=== PATIENT | male | born 1960 | race African-American/Black ===

== ENCOUNTER 2018-10-02 09:51 | Day surgery (SDC) | payer OTHER ==
[~2018-10-02] VITALS: Ht 180.3 cm; Wt 77.3 kg
[~2018-10-02 09:51] MED LIST: ASPI-1484 PO; HYDR-4173 PO; HYDROCHLORTHIAZIDE PO; LOSA100T58 PO; METF-444 PO; PRAV20TA4 PO; SODIUM CHLORIDE 0.9% 1,000 ML IV ONE; [UNRECOGNIZED DRUG - OTHER] PO
[2018-10-02] MEDS ORDERED: MIDAZOLAM HCL 2 MG/2 ML VIAL IVP ONE (09:52)
[2018-10-02] MEDS ORDERED: LIDOCAINE/PF 2% 5 ML VIAL IM ONE (09:52)
[2018-10-02] MEDS ORDERED: FentaNYL CITRATE-PF 100 MCG/2 ML VIAL IVP ONE (09:52)
[2018-10-02] MEDS ORDERED: PROPOFOL 1% 20 ML VIAL IVP ONE (09:52)
[2018-10-02] MEDS ORDERED: SODIUM CHLORIDE 0.9% 1,000 ML IV ONE (10:00)
[2018-10-02 10:18] LABS: BASOPHILS % (AUTO) 1.8 % (0.0-2.0); EOSINOPHILS % (AUTO) 1.5 % (1.0-6.0); HEMATOCRIT 41.8 % (41-53); HEMOGLOBIN 13.7 g/dL (13.5-17.5); LYMPHOCYTES # (AUTO) 1.6 K/uL (1.0-4.8); LYMPHOCYTES % (AUTO) 36.5 % (22.0-44.0); MEAN CORPUSCULAR HEMOGLOBIN 29.7 pg (26.0-34.0); MEAN CORPUSCULAR HGB CONC 32.7 G/dL (31.0-37.0); MEAN CORPUSCULAR VOLUME 91 fL (80-100); MONOCYTES # (AUTO) 0.4 K/uL (0.1-1.0); MONOCYTES % (AUTO) 9.8 % (2.0-9.0); NEUTROPHILS # (AUTO) 2.2 K/uL (1.8-7.7); NEUTROPHILS % (AUTO) 50.4 % (40.0-70.0); PLATELET COUNT (AUTO) 242 K/uL (150-450); RED BLOOD CELL COUNT(AUTO) 4.61 MIL/uL (4.50-5.90); RED CELL DISTRIBUTION WIDTH 13.8 % (11.5-14.5)
[2018-10-02 10:27] LABS: ANION GAP 6 mmol/L (8-16); CALCIUM, TOTAL 9.2 mg/dL (8.8-10.5); CARBON DIOXIDE 35 mmol/L (22-29); CHLORIDE 99 mmol/L (98-107); CREATININE 1.42 mg/dL (0.60-1.30); GLOMERULAR FILTR. RATE CALC > 60 mL/min (>60); GLUCOSE,RANDOM 102 mg/dL (70-110); POTASSIUM 3.5 mmol/L (3.5-5.1); SODIUM SERUM 140 mmol/L (136-145); UREA NITROGEN, BLOOD 14 mg/dL (7-18)
[2018-10-02 10:30] LABS: PROTHROMBIN TIME 10.2 SEC (9.4-11.6)
[2018-10-02] MEDS ORDERED: SACU1TAB4 PO (10:43)
[2018-10-02] MEDS ORDERED: LIDOCAINE/PF 1% 30 ML VIAL ONE ×2 (11:33→12:16)
[2018-10-02] MEDS ORDERED: SODIUM BICARBONATE 50 MEQ/50 ML VIAL ONE (11:33)
[2018-10-02 11:49] VITALS: BP 140/86
[2018-10-02] MEDS ORDERED: LIDOCAINE 1% 30 ML/SOD BICARB 8.4% 4 ML SQ ONE (12:15)
[2018-10-02] MEDS ORDERED: BUPIVACAINE LIPOSOME/PF 1.3%-13.3MG/ML SUSPENSION 10 ML VIAL INJ ONE (12:15)
[2018-10-02 13:10] VITALS: BP 113/76
[2018-10-02] MEDS ORDERED: ACETAMINOPHEN 325 MG TABLET PO PRN (13:45)
[2018-10-02] MEDS ORDERED: CeFAZolin 1 GM/DEXTROSE 50 ML IV ONE ×2 (13:57→16:00)
[2018-10-02] MEDS ORDERED: HYDROCODONE/ACETAMINOPHEN 5-325 MG TABLET PO ONE (14:15)
[2018-10-02] MEDS ORDERED: HYDROCODONE/ACETAMINOPHEN 5-325 MG TABLET ONE (14:23)
== END 2018-10-02 17:00 | disposition home or self-care (01) ==
LOC: SDS 09:51
PROVIDERS: ATTEND Internal Medicine Clinical Cardiac Electrophysiology
DX: Z45.02 Encounter for adjustment and management of automatic implantable cardiac defibrillator (principal); I11.0 Hypertensive heart disease with heart failure; I50.9 Heart failure, unspecified; I42.9 Cardiomyopathy, unspecified; E11.9 Type 2 diabetes mellitus without complications; Z79.899 Other long term (current) drug therapy; Z98.890 Other specified postprocedural states
CPT/HCPCS: 33263; 36415; 80048; 83735; 85025; 85610; 85730; 88300; 93005; C1721; J0690; J2250; J2704; J3010; J3490 ×3; J7030; 33240

== ENCOUNTER 2024-03-25 21:02 | Inpatient (IN) | payer OTHER ==
[~2024-03-25] VITALS: Ht 180.3 cm; Wt 79.5 kg
[~2024-03-25 21:02] MED LIST changes: -ASPI-1484 PO; +ASPI-2 PO; -HYDR-4173 PO; +HYDR25TA68 PO; -LOSA100T58 PO; +LOSA100T59 PO; +SACU1TAB4 PO; -SODIUM CHLORIDE 0.9% 1,000 ML IV ONE
[2024-03-25 21:30] LABS: GLUCOMETER DEV NAME(LOC) ERT.6; GLUCOSE,POINT OF CARE 116 MG/DL (70-110)
[2024-03-25 21:41] LABS: BASOPHILS % (AUTO) 0.7 % (0.0-2.0); EOSINOPHILS % (AUTO) 2.6 % (1.0-6.0); HEMATOCRIT 41.3 % (41-53); HEMOGLOBIN 13.2 g/dL (13.5-17.5); LYMPHOCYTES # (AUTO) 2.2 K/uL (1.0-4.8); LYMPHOCYTES % (AUTO) 49.6 % (22.0-44.0); MEAN CORPUSCULAR HEMOGLOBIN 31.5 pg (26.0-34.0); MEAN CORPUSCULAR VOLUME 99 fL (80-100); MONOCYTES # (AUTO) 0.5 K/uL (0.1-1.0); MONOCYTES % (AUTO) 12.4 % (2.0-9.0); NEUTROPHILS # (AUTO) 1.5 K/uL (1.8-7.7); NEUTROPHILS % (AUTO) 34.7 % (40.0-70.0); PLATELET COUNT (AUTO) 250 K/uL (150-450); RED BLOOD CELL COUNT(AUTO) 4.19 MIL/uL (4.50-5.90); RED CELL DISTRIBUTION WIDTH 15.4 % (11.5-14.5); WHITE BLOOD COUNT (AUTO) 4.4 K/uL (4.5-11.0)
[2024-03-25 21:54] LABS: PROTHROMBIN TIME 10.3 SEC (9.4-11.6)
[2024-03-25 21:56] LABS: ANION GAP 6 mmol/L (8-16); CALCIUM, TOTAL 9.1 mg/dL (8.8-10.5); CARBON DIOXIDE 34 mmol/L (22-29); CHLORIDE 104 mmol/L (98-107); CREATININE 1.55 mg/dL (0.60-1.30); GLOMERULAR FILTR. RATE CALC 55 mL/min (>60); GLUCOSE,RANDOM 112 mg/dL (70-110); POTASSIUM 3.9 mmol/L (3.5-5.1); SODIUM SERUM 144 mmol/L (136-145); UREA NITROGEN, BLOOD 15 mg/dL (7-18)
[2024-03-25 22:03] LABS: ALCOHOL, BLOOD (SERUM) < 3 mg/dL (0-10)
[2024-03-25 22:04] LABS: ALCOHOL, URINE DRUG SCREEN NEGATIVE (NEGATIVE); AMPHET/METH SCREEN,URINE NEGATIVE (NEGATIVE); BARBITURATE SCREEN, URINE NEGATIVE (NEGATIVE); BENZODIAZEPINES SCREEN,URINE NEGATIVE (NEGATIVE); CANNABINOID SCREEN,URINE POSITIVE (NEGATIVE); COCAINE SCREEN,URINE NEGATIVE (NEGATIVE); METHADONE SCREEN, URINE NEGATIVE (NEGATIVE); OPIATE SCREEN,URINE NEGATIVE (NEGATIVE); PHENCYCLIDINE SCREEN,URINE NEGATIVE (NEGATIVE)
[2024-03-25 22:04] LABS: ALANINE AMINOTRANSFERASE 31 U/L (12-78); ALBUMIN 3.3 g/dL (3.4-5.0); ALKALINE PHOSPHATASE 95 U/L (46-116); ASPARTATE AMINOTRANSFERASE 29 U/L (15-37); BILIRUBIN,TOTAL 0.4 mg/dL (0.1-1.0); CREATINE KINASE, TOTAL ONLY 360 U/L (39-308); PHOSPHORUS 3.3 mg/dL (2.5-4.9); TOTAL PROTEIN, SERUM 7.6 g/dL (6.4-8.2)
[2024-03-25 22:05] LABS: B-TYPE NATRIURETIC PEPTIDE 56 pg/mL (0-100)
[2024-03-25 22:06] LABS: TROPONIN I-HIGH SENSITIVITY 503 ng/L (<76)
[2024-03-25] MEDS ORDERED: HYDROCODONE/ACETAMINOPHEN 5-325 MG TABLET PO PRN (22:15)
[2024-03-25] MEDS ORDERED: MORPHINE SULFATE 2 MG/ML SYRINGE IVP PRN (22:15)
[2024-03-25] MEDS ORDERED: BISACODYL 10 MG RECTAL RECTAL SUPPOSITORY PR PRN (22:15)
[2024-03-25] MEDS ORDERED: ZOLPIDEM TARTRATE 5 MG TABLET PO PRN (22:15)
[2024-03-25] MEDS ORDERED: ACETAMINOPHEN 325 MG TABLET PO PRN (22:15)
[2024-03-25] MEDS ORDERED: ONDANSETRON HCL 4 MG/2 ML VIAL IVP PRN (22:15)
[2024-03-25] MEDS ORDERED: MAGNESIUM HYDROXIDE SUSPENSION 30 ML UDCUP PO PRN (22:15)
[2024-03-25] MEDS: HEPARIN SODIUM,PORCINE 5,000 UNITS/ML VIAL SQ SCH (23:36)
[2024-03-26 01:20] LABS: TROPONIN I-HIGH SENSITIVITY 3287 ng/L (<76)
[2024-03-26] MEDS ORDERED: HEPARIN SODIUM,PORCINE 5,000 UNITS/ML VIAL IVP PRN ×2 (03:15)
[2024-03-26] MEDS: HEPARIN SODIUM 25000 UNITS/D5W 250 ML IV PRN (03:54)
[2024-03-26] MEDS: PANTOPRAZOLE SODIUM 40 MG DR TABLET PO SCH (08:17)
[2024-03-26] MEDS: PRAVASTATIN SODIUM 20 MG TABLET PO SCH (08:17)
[2024-03-26] MEDS: CARVEDILOL 6.25 MG TABLET PO SCH (08:17)
[2024-03-26] MEDS: SACUBITRIL/VALSARTAN 97-103 MG TABLET PO SCH (08:17)
[2024-03-26 08:18] LABS: ANION GAP 6 mmol/L (8-16); CALCIUM, TOTAL 8.9 mg/dL (8.8-10.5); CARBON DIOXIDE 31 mmol/L (22-29); CHLORIDE 106 mmol/L (98-107); CREATININE 1.25 mg/dL (0.60-1.30); GLOMERULAR FILTR. RATE CALC > 60 mL/min (>60); GLUCOSE,RANDOM 95 mg/dL (70-110); POTASSIUM 3.6 mmol/L (3.5-5.1); SODIUM SERUM 143 mmol/L (136-145); UREA NITROGEN, BLOOD 14 mg/dL (7-18)
[2024-03-26] MEDS: DOCUSATE SODIUM 100 MG CAPSULE PO SCH (08:18)
[2024-03-26] MEDS: HydrALAZINE HCL 25 MG TABLET PO SCH (08:18)
[2024-03-26 08:30] LABS: TROPONIN I-HIGH SENSITIVITY 2068 ng/L (<76)
[2024-03-26 09:25] VITALS: BP 133/87; PULSE 69; RESP 19; TEMP 98.4; O2SAT 97
[2024-03-26] MEDS ORDERED: INSULIN LISPRO 100 UNITS/ML SQ PRN (11:00)
[2024-03-26] MEDS ORDERED: DEXTROSE 50%-WATER 25 GM/50 ML SYRINGE IVP PRN (11:00)
[2024-03-26 11:13] VITALS: BP 131/85; PULSE 63; RESP 16; TEMP 98.6; O2SAT 100
[2024-03-26 13:46] LABS: GLUCOMETER DEV NAME(LOC) 5S.2D; GLUCOSE,POINT OF CARE 99 MG/DL (70-110)
[2024-03-26 15:13] VITALS: BP 129/76; PULSE 73; RESP 19; TEMP 98.2; O2SAT 98
[2024-03-26] MEDS: ASPIRIN 81 MG DR TABLET PO SCH (17:51)
[2024-03-26 19:55] LABS: GLUCOMETER DEV NAME(LOC) 5N.1D; GLUCOSE,POINT OF CARE 113 MG/DL (70-110)
[2024-03-26] MEDS ORDERED: MetFORMIN HCL 500 MG TABLET PO SCH (21:00)
[2024-03-26 21:03] VITALS: BP 108/76; PULSE 60; RESP 18; TEMP 98.7; O2SAT 99
[2024-03-27 01:12] VITALS: BP 111/76; PULSE 61; RESP 19; TEMP 98.4; O2SAT 99
[2024-03-27 05:06] LABS: GLUCOMETER DEV NAME(LOC) 5S.2D; GLUCOSE,POINT OF CARE 117 MG/DL (70-110)
[2024-03-27 05:44] VITALS: BP 106/77; PULSE 66; RESP 18; TEMP 98.4; O2SAT 99
[2024-03-27 06:49] LABS: BASOPHILS % (AUTO) 0.8 % (0.0-2.0); EOSINOPHILS % (AUTO) 1.5 % (1.0-6.0); HEMATOCRIT 39.3 % (41-53); HEMOGLOBIN 13.3 g/dL (13.5-17.5); LYMPHOCYTES # (AUTO) 1.8 K/uL (1.0-4.8); LYMPHOCYTES % (AUTO) 37.4 % (22.0-44.0); MEAN CORPUSCULAR HEMOGLOBIN 32.9 pg (26.0-34.0); MEAN CORPUSCULAR HGB CONC 33.8 G/dL (31.0-37.0); MEAN CORPUSCULAR VOLUME 97 fL (80-100); MONOCYTES # (AUTO) 0.6 K/uL (0.1-1.0); MONOCYTES % (AUTO) 12.5 % (2.0-9.0); NEUTROPHILS # (AUTO) 2.3 K/uL (1.8-7.7); NEUTROPHILS % (AUTO) 47.8 % (40.0-70.0); PLATELET COUNT (AUTO) 236 K/uL (150-450); RED BLOOD CELL COUNT(AUTO) 4.05 MIL/uL (4.50-5.90); WHITE BLOOD COUNT (AUTO) 4.8 K/uL (4.5-11.0)
[2024-03-27 07:11] LABS: ANION GAP 6 mmol/L (8-16); CARBON DIOXIDE 31 mmol/L (22-29); CHLORIDE 103 mmol/L (98-107); CHOL/HDL RATIO 2.5 (4.2-7.3); CHOLESTEROL 160 mg/dL (131-200); CREATININE 1.28 mg/dL (0.60-1.30); GLOMERULAR FILTR. RATE CALC > 60 mL/min (>60); GLUCOSE,RANDOM 111 mg/dL (70-110); HDL CHOLESTEROL 63 mg/dL (40-60); LDL CHOL (CALC.) 85 mg/dL (0-130); POTASSIUM 3.9 mmol/L (3.5-5.1); SODIUM SERUM 139 mmol/L (136-145); TRIGLYCERIDES 59 mg/dL (15-150); UREA NITROGEN, BLOOD 15 mg/dL (7-18)
[2024-03-27 07:18] LABS: TROPONIN I-HIGH SENSITIVITY 577 ng/L (<76)
[2024-03-27 08:40] VITALS: BP 131/93; PULSE 72; RESP 19; TEMP 98; O2SAT 100
[2024-03-27 11:55] VITALS: BP 124/86; PULSE 70; RESP 20; TEMP 98.2; O2SAT 100
[2024-03-27 13:16] LABS: GLUCOMETER DEV NAME(LOC) 5S.2D; GLUCOSE,POINT OF CARE 132 MG/DL (70-110)
[2024-03-27] MEDS ORDERED: ASPI-1444 PO (13:43)
[2024-03-27] MEDS ORDERED: SACU1TAB4 PO (13:43)
[2024-03-27] MEDS ORDERED: CARV6.2534 PO (13:43)
[2024-03-27] MEDS ORDERED: SPIR-37 PO (13:43)
[2024-03-27] MEDS ORDERED: HYDR25TA84 PO (13:43)
[2024-03-27] MEDS ORDERED: PRAV20TA4 PO (13:43)
[2024-03-27] MEDS ORDERED: HEPARIN SODIUM,PORCINE 5,000 UNITS/ML VIAL SQ SCH (16:00)
[2024-03-27 17:21] LABS: GLUCOMETER DEV NAME(LOC) 5N.1D; GLUCOSE,POINT OF CARE 113 MG/DL (70-110)
[2024-03-28] MEDS ORDERED: SPIRONOLACTONE 25 MG TABLET PO SCH (09:00)
== END 2024-03-27 15:00 | disposition home or self-care (01) | DRG 281 ==
LOC: EMS 21:02 → EDH 22:09 → 5S 03-26 08:52
PROVIDERS: ADMIT Internal Medicine; ATTEND Internal Medicine
PROC: 4B02XTZ Measurement of Cardiac Defibrillator, External Approach (ICD-10-PCS; principal; 2024-03-25)
DX: T82.110A Breakdown (mechanical) of cardiac electrode, initial encounter (principal); I42.9 Cardiomyopathy, unspecified; I21.A1 Myocardial infarction type 2; N17.9 Acute kidney failure, unspecified; E11.9 Type 2 diabetes mellitus without complications; I50.9 Heart failure, unspecified; I11.0 Hypertensive heart disease with heart failure; E78.00 Pure hypercholesterolemia, unspecified; I49.9 Cardiac arrhythmia, unspecified; Z79.899 Other long term (current) drug therapy; Z95.810 Presence of automatic (implantable) cardiac defibrillator; Y83.8 Other surgical procedures as the cause of abnormal reaction of the patient, or of later complication, without mention of misadventure at the time of the procedure; Y92.89 Other specified places as the place of occurrence of the external cause
CPT/HCPCS: 71045; 80048; 80061; 80076; 80307; 82550; 82962; 83036; 83735; 83880; 84100; 84484; 85025; 85610; 85730; 93005; 93306; 96365; 96372; 99285; 99291; G0378; G0480; J1644; 36415-L1; 36415-TC

== ENCOUNTER 2024-04-23 05:41 | Day surgery (SDC) | payer OTHER ==
[~2024-04-23] VITALS: Ht 180.3 cm; Wt 79.5 kg
[~2024-04-23 05:41] MED LIST changes: +ASPI-1444 PO; -ASPI-2 PO; +CARV6.2534 PO; -HYDR25TA68 PO; +HYDR25TA84 PO; -HYDROCHLORTHIAZIDE PO; -LOSA100T59 PO; +RINGERS SOLUTION,LACTATED 1,000 ML IV ONE; +SPIR-37 PO; -[UNRECOGNIZED DRUG - OTHER] PO
[2024-04-23] MEDS ORDERED: BACL10TA PO (06:39)
[2024-04-23] MEDS ORDERED: LORA10TA7 PO (06:39)
[2024-04-23] MEDS ORDERED: HYDR25TA2 PO (06:39)
[2024-04-23] MEDS ORDERED: DAPA5TAB PO (06:39)
[2024-04-23] MEDS ORDERED: LIDOCAINE/PF 1% 30 ML VIAL ONE ×2 (06:40)
[2024-04-23] MEDS ORDERED: CeFAZolin SODIUM 1 GM VIAL ONE (06:40)
[2024-04-23] MEDS ORDERED: SODIUM BICARBONATE 50 MEQ/50 ML VIAL ONE (06:40)
[2024-04-23 06:45] LABS: BASOPHILS % (AUTO) 1.4 % (0.0-2.0); EOSINOPHILS % (AUTO) 2.2 % (1.0-6.0); HEMATOCRIT 39.1 % (41-53); LYMPHOCYTES # (AUTO) 1.4 K/uL (1.0-4.8); LYMPHOCYTES % (AUTO) 34.5 % (22.0-44.0); MEAN CORPUSCULAR HEMOGLOBIN 32.3 pg (26.0-34.0); MEAN CORPUSCULAR HGB CONC 33.3 G/dL (31.0-37.0); MEAN CORPUSCULAR VOLUME 97 fL (80-100); MONOCYTES # (AUTO) 0.5 K/uL (0.1-1.0); MONOCYTES % (AUTO) 12.1 % (2.0-9.0); NEUTROPHILS % (AUTO) 49.8 % (40.0-70.0); PLATELET COUNT (AUTO) 250 K/uL (150-450); RED BLOOD CELL COUNT(AUTO) 4.04 MIL/uL (4.50-5.90); RED CELL DISTRIBUTION WIDTH 14.3 % (11.5-14.5); WHITE BLOOD COUNT (AUTO) 4.1 K/uL (4.5-11.0)
[2024-04-23 06:48] LABS: ANION GAP 2 mmol/L (8-16); CALCIUM, TOTAL 9.1 mg/dL (8.8-10.5); CARBON DIOXIDE 33 mmol/L (22-29); CHLORIDE 100 mmol/L (98-107); CREATININE 1.34 mg/dL (0.60-1.30); GLOMERULAR FILTR. RATE CALC > 60 mL/min (>60); GLUCOSE,RANDOM 113 mg/dL (70-110); POTASSIUM 3.6 mmol/L (3.5-5.1); SODIUM SERUM 135 mmol/L (136-145); UREA NITROGEN, BLOOD 16 mg/dL (7-18)
[2024-04-23 06:55] LABS: ALANINE AMINOTRANSFERASE 28 U/L (12-78); ALBUMIN 3.2 g/dL (3.4-5.0); ALKALINE PHOSPHATASE 94 U/L (46-116); ASPARTATE AMINOTRANSFERASE 23 U/L (15-37); BILIRUBIN,TOTAL 0.6 mg/dL (0.1-1.0); TOTAL PROTEIN, SERUM 7.3 g/dL (6.4-8.2)
[2024-04-23] MEDS: RINGERS SOLUTION,LACTATED 1,000 ML IV ONE (06:56)
[2024-04-23 07:46] VITALS: BP 128/77; PULSE 55
[2024-04-23] MEDS ORDERED: IOHEXOL 300 MG/ML 50 ML VIAL ONE (08:07)
[2024-04-23] MEDS ORDERED: FentaNYL CITRATE PF 100 MCG/2 ML VIAL ONE (08:20)
[2024-04-23] MEDS ORDERED: MIDAZOLAM HCL 2 MG/2 ML VIAL ONE ×2 (08:20→08:49)
[2024-04-23] MEDS ORDERED: DiphenhydrAMINE HCL 50 MG/ML VIAL ONE (08:23)
[2024-04-23] MEDS: LIDOCAINE 1% 30 ML/SOD BICARB 8.4% 4 ML SQ ONE (09:25)
[2024-04-23] MEDS: DiphenhydrAMINE HCL 50 MG/ML VIAL IVP ONE (09:26)
[2024-04-23] MEDS: MIDAZOLAM HCL 2 MG/2 ML VIAL IVP ONE ×3 (09:26→09:29)
[2024-04-23] MEDS: CeFAZolin SODIUM 1 GM VIAL IRRIG ONE (09:26)
[2024-04-23] MEDS: FentaNYL CITRATE PF 100 MCG/2 ML VIAL IVP ONE ×3 (09:27→09:30)
[2024-04-23] MEDS: CeFAZolin SODIUM 1 GM VIAL IVP ONE (09:28)
[2024-04-23 09:35] VITALS: BP 113/73; PULSE 60
== END 2024-04-23 12:10 | disposition home or self-care (01) ==
LOC: SURGERY 05:41
PROVIDERS: ATTEND Internal Medicine Clinical Cardiac Electrophysiology
DX: T82.190A Other mechanical complication of cardiac electrode, initial encounter (principal); I42.0 Dilated cardiomyopathy; Z79.01 Long term (current) use of anticoagulants; I10 Essential (primary) hypertension; E11.9 Type 2 diabetes mellitus without complications; Z79.899 Other long term (current) drug therapy
CPT/HCPCS: 33249; 93005; 80053; 85025; 85610; 85730; 36415; 88300; 99152; 99153; 33241; 33244; 71045; C1721; C1899; J0690; J1200; J3010; J3490 ×2; J2250; J7120; 33216; 33240; 76000; Q9967